=== PATIENT | female | born 1940 | race Caucasian/White ===

== ENCOUNTER 2020-03-18 10:50 | Day surgery (SDC) | payer MEDICARE ==
[2020-03-17 12:04] LABS: CHLORIDE 104 mmol/L (98-107)
[2020-03-17 12:11] LABS: ALANINE AMINOTRANSFERASE 20 U/L (12-78); ALBUMIN 3.4 g/dL (3.4-5.0); ALKALINE PHOSPHATASE 123 U/L (45-117); BILIRUBIN,TOTAL 0.3 mg/dL (0.2-1.0); CALCIUM 9.4 mg/dL (8.5-10.1); CREATININE 1.24 mg/dL (0.55-1.02); TOTAL PROTEIN 7.5 g/dL (6.4-8.2)
[2020-03-17 12:25] LABS: ANION GAP 3 mmol/L (5-15)
[~2020-03-18] VITALS: Ht 172.7 cm; Wt 94.6 kg
[~2020-03-18 10:50] MED LIST: ASPI81TA45 PO; Albuterol INH; BUPIVACAINE/PF 0.5% ONE; CYAN50003 PO; EPHEDRINE 50 MG/ML, 1ML IVPush PRN; EPINEPHRINE 1 MG/ML, 1ML ONE; FENTANYL PF 100 MCG/2ML IV PRN; FERR324T5 PO; FLUT10.6 INH; FURO20TA3 PO; GABA300C PO; HYDROmorphone 1 MG/ML, 1ML INJ IVPush PRN; IPRA15SP INH; IPRA4AER INH; LABETALOL 5MG/ML, 20ML IV PRN; LISI-167 PO; MAGN400C PO; MELO15TA24 PO; METO2.5T PO; OMEP40CA42 PO; ONDANSETRON 2MG/ML, 2ML IVPush PRN; OXYC1TAB18 PO; OXYC20TA42 PO; OXYcodone 5 MG/5 ML ORAL.SOL UDC PO PRN; PROMETHAZINE 25 MG/ML, 1ML IVPush PRN; SENN-204 PO; SERT100T32 PO; SIMV40TA20 PO; SPIR25TA5 PO; TIOT4MIS3 INH; TRAZ50TA66 PO; VIT1CAPS9 PO; hydrALAzine 20 MG/ML, 1ML IV PRN
[2020-03-18] MEDS ORDERED: ACETAMINOPHEN 500 MG TABLET PO STA (11:17)
[2020-03-18] MEDS ORDERED: FENTANYL PF 100 MCG/2ML ONE (11:21)
[2020-03-18 11:25] VITALS: BP 111/70
[2020-03-18] MEDS ORDERED: CHLORHEXIDINE 15 ML UDC MM ONE (11:30)
[2020-03-18] MEDS ORDERED: LACTATED RINGERS 1,000 ML IV SCH (11:30)
[2020-03-18] MEDS ORDERED: KETOROLAC 30 MG/1 ML ONE (12:04)
[2020-03-18] MEDS ORDERED: ALBUTEROL HFA 90 MCG/SPRAY ONE (12:17)
[2020-03-18] MEDS ORDERED: ONDANSETRON 2MG/ML, 2ML ONE (12:20)
[2020-03-18] MEDS ORDERED: PROPOFOL 10 MG/ML, 20ML ONE (12:20)
[2020-03-18] MEDS ORDERED: CEFAZOLIN 1,000 MG ONE (12:20)
[2020-03-18] MEDS ORDERED: DEXAMETHASONE 4 MG/ML, 1ML ONE (12:20)
[2020-03-18] MEDS ORDERED: GABAPENTIN 300 MG CAPSULE ONE (13:12)
[2020-03-18] MEDS ORDERED: GABAPENTIN 300 MG CAPSULE PO ONE (13:30)
== END 2020-03-18 14:05 | disposition home or self-care (01) ==
LOC: OUT 10:50
PROVIDERS: ATTEND Orthopaedic Surgery
DX: T84.84XA Pain due to internal orthopedic prosthetic devices, implants and grafts, initial encounter (principal); J44.9 Chronic obstructive pulmonary disease, unspecified; I25.2 Old myocardial infarction; I10 Essential (primary) hypertension; M19.90 Unspecified osteoarthritis, unspecified site; D64.9 Anemia, unspecified; Z82.49 Family history of ischemic heart disease and other diseases of the circulatory system; Y83.8 Other surgical procedures as the cause of abnormal reaction of the patient, or of later complication, without mention of misadventure at the time of the procedure; Z20.828 Contact with and (suspected) exposure to other viral communicable diseases; Z79.899 Other long term (current) drug therapy; Z79.82 Long term (current) use of aspirin; Z90.710 Acquired absence of both cervix and uterus; Z87.891 Personal history of nicotine dependence
CPT/HCPCS: 20680; 36415; 73600; 76000; 80053; 87635; 93005; J0171; J0690; J1100; J1885; J2405; J2704; J3010; J7120